=== PATIENT | female | born 1980 | race Caucasian/White ===

== ENCOUNTER 2021-11-08 20:56 | Emergency (ER) | payer OTHER, SELFPAY ==
[~2021-11-08] VITALS: Ht 167.6 cm; Wt 81.6 kg
[2021-11-08 21:34] VITALS: BP_SYST 142
--- NOTE | 2021-11-08 22:50 | NUR ---
Placed in room 4 . Placed on school lunch monitor, blood pressure machine and pulse oximeter. To gown for exam. Side rails up.
--- NOTE | 2021-11-08 22:55 | NUR ---
ER Dr. May at bedside examining patient.
[2021-11-08] MEDS ORDERED: HYDR-4038 PO (23:16)
--- NOTE | 2021-11-08 23:41 | NUR ---
Patient given written and verbal discharge instructions and verbalizes understanding. ER MD discussed with patient the results and treatment provided. Patient in stable condition. ID arm band removed. IV catheter removed intact and dressing applied, no active bleeding. Rx of hydralazine given. Opportunity for questions provided and answered. Medication side effect fact sheet provided.
[2021-11-08] MEDS ORDERED: LORazepam 1 MG TABLET PO ONE (23:45)
[2021-11-09 00:11] VITALS: BP_SYST 142
== END 2021-11-08 23:41 | disposition home or self-care (01) ==
LOC: SED 20:56
DX: R53.1 Weakness (principal); F17.200 Nicotine dependence, unspecified, uncomplicated; Z88.0 Allergy status to penicillin
CPT/HCPCS: 81002; 81025; 99283